=== PATIENT | female | born 1960 | race Caucasian/White ===

== ENCOUNTER 2017-10-26 11:06 | Observation (INO) | payer OTHER ==
[~2017-10-26] VITALS: Ht 167.6 cm; Wt 98.0 kg
[~2017-10-26 11:06] MED LIST: CZR25 PO; LEVO100T7 PO; PRLSR20 PO; VENL150C56 PO
[2017-10-26 11:36] LABS: HEMATOCRIT 40.5 % (37-47); HEMOGLOBIN 13.4 g/dL (12.0-16.0); MEAN CELL VOLUME 87.5 fL (80-100); MEAN CORPUSCULAR HEMOGLOBIN 28.9 pg (25-34); MEAN CORPUSCULAR HGB CONC 33.1 g/dl (32-36); MEAN PLATELET VOLUME 9.5 fL (7.4-10.4); PLATELET COUNT 354 K/uL (130-400); RED CELL DISTRIBUTION WIDTH CV 12.7 % (11.5-14.5); RED CELL DISTRIBUTION WIDTH SD 40.8 fL (36.4-46.3); WHITE BLOOD COUNT 10.52 K/uL (4.8-10.8)
[2017-10-26 11:45] LABS: PTT PATIENT 25.7 SECONDS (21.0-31.0)
[2017-10-26] MEDS ORDERED: NITROGLYCERIN OINT 2% 1GM PACKET EXT ONE (11:45)
--- NOTE | 2017-10-26 11:54 | DIAGNOSTIC IMAGING REPORT ---
SINGLE VIEW CHEST CLINICAL HISTORY: Atypical chest pain. FINDINGS: An AP, portable, upright chest radiograph is compared to study dated 07/08/2015. The examination is mildly degraded by portable technique and patient rotation. The cardiomediastinal silhouette is unremarkable. There is mild atherosclerotic calcification of the thoracic aorta. The lungs and pleural spaces are clear. No pneumothorax is seen. The bony thorax is grossly intact. IMPRESSION: No acute cardiopulmonary abnormality. Electronically signed by: Jay Jay Esquivel M.D. 10/26/2017 11:53 AM Dictated Date/Time: 10/26/2017 11:53 AM
[2017-10-26 11:56] LABS: ALBUMIN 3.8 gm/dl (3.4-5.0); CALCIUM 9.5 mg/dl (8.5-10.1); CREATININE 0.73 mg/dl (0.60-1.20); POTASSIUM 3.5 mmol/L (3.5-5.1)
[2017-10-26] MEDS ORDERED: AMLO-110 PO (12:01)
[2017-10-26 12:04] LABS: TOTAL PROTEIN 8.2 gm/dl (6.4-8.2)
[2017-10-26] MEDS ORDERED: ALUMINUM/MAGNESIUM/SIMETH (MAALOX MAX) 30 ML UDC PO PRN (12:15)
[2017-10-26] MEDS ORDERED: ACETAMINOPHEN 325 MG TAB PO PRN (12:15)
[2017-10-26] MEDS ORDERED: ONDANSETRON INJ 2 MG/ML 2 ML VIAL IV PRN (12:15)
[2017-10-26] MEDS ORDERED: MAGNESIUM HYDROXIDE SUSP 30 ML UDC PO PRN (12:15)
[2017-10-26] MEDS ORDERED: POLYETHYLENE (MIRALAX) 17 GM PACK PO PRN (12:15)
[2017-10-26] MEDS ORDERED: LOSA50TA6 PO (12:22)
[2017-10-26] MEDS ORDERED: PANTOprazole SOD 40 MG TAB PO STA (12:23)
[2017-10-26 12:26] LABS: PHOSPHORUS 0.8 mg/dl (2.5-4.9)
[2017-10-26] MEDS ORDERED: NITROGLYCERIN 2% OINTMENT 30GM TUBE EXT ONE (13:15)
--- NOTE | 2017-10-26 13:40 | EMERGENCY ROOM VISIT NOTE ---
ED Visit Note First contact with patient: 11:37 I saw this patient in conjunction with Bridger Perkins PA-C. I agree with his decision-making and treatment plan
[2017-10-26] MEDS ORDERED: IV FLUIDS COMPLETED PRN (13:45)
[2017-10-26] MEDS ORDERED: SODIUM CHLORIDE 0.9% 1000ML 1,000 ML IV SCH (14:00)
[2017-10-26 14:07] VITALS: BP 161/76; PULSE 58; TEMP 36.8; O2SAT 99; Ht 167.6 cm; Wt 98.0 kg
[2017-10-26] MEDS ORDERED: POTASSIUM PHOS 3 MMOL/1 ML INFUSION IV STA (14:24)
--- NOTE | 2017-10-26 14:26 | EMERGENCY ROOM VISIT NOTE ---
History First contact with patient: 11:37 Chief Complaint: CHEST PAIN Stated Complaint: CHEST PAIN History of Present Illness The patient is a 57 year old female who presents to the Emergency Room with complaints of lower central/epigastric pain that radiates around the left chest to the back. The patient reports that the pain awakened her at 6 AM this morning. Shortly after the pain started, she then started to feel pain radiating into the left jaw the patient initially thought that it may be secondary to anxiety, but when the pain did not subside, the patient called 911. The patient reports that she has had a prior history of chest pain. She was admitted to our facility in 2014, when her workup was normal. The patient has not seen a clothing and textiles teacher since her admission. The patient has had 2 prior cardiac catheterizations that were normal. She believes that her last catheterization was in 2010. She did have some nausea and diaphoresis at the time of pain onset. The patient was administered 4 baby aspirin en route, along with nitroglycerin 3. H or glycerin did reduce her pain after each subsequent dose, and currently rates her discomfort a 3 out of 10. Review of Systems HEENT: Denies dizziness, visual problems, hearing loss, tinnitus. Denies difficulty swallowing or oral lesions. PULMONARY: Denies cough, shortness of breath, sputum production or hemoptysis. CARDIOVASCULAR: Denies any recent palpitations, dyspnea on exertion, orthopnea or peripheral edema. Otherwise see history of present illness for current symptoms. GASTROINTESTINAL: Denies recent diarrhea, constipation or abdominal pain. GENITOURINARY: Denies dysuria, frequency, urgency or nocturia. NEUROLOGIC: Denies history of epilepsy, CVA, TIA or chronic headaches. MUSCULOSKELETAL: Denies history of joint tenderness/swelling. SKIN: Denies rashes or lesions. PSYCHIATRIC: Denies history of depression or mental illness. ENDOCRINE: Denies history of diabetes or thyroid disorders. Past Medical/Surgical History Medical Problems: (1) Anxiety Surgical Problems: (1) H/O: (2) History of cholecystectomy Medical Problems: (1) Anxiety (2) Depression (3) GERD (gastroesophageal reflux disease) (4) Hyperlipidemia (5) Hypothyroidism (6) Osteoarthritis, knee (7) Vitamin B 12 deficiency Surgical Problems: (1) H/O: (2) History of cholecystectomy Family History Heart disease Hypertension Social History Smoking Status: Former Smoker Alcohol Use: none Drug Use: none Marital Status: Housing Status: unknown Occupation Status: disabled Current/Historical Medications Scheduled Amlodipine (Norvasc), 5 MG PO DAILY Levothyroxine Sodium (Levothyroxine Sodium), 100 MCG PO DAILY Losartan Potassium (Cozaar), 1 TAB PO DAILY Omeprazole (Prilosec), 20 MG PO DAILY Venlafaxine Hcl (Effexor Extended Rel), 150 MG PO DAILY Physical Exam Vital Signs Date Time Temp Pulse Resp B/P (MAP) Pulse Ox O2 Delivery O2 Flow Rate FiO2 10/26/17 13:44 63 20 140/83 99 10/26/17 13:30 63 20 140/83 99 Room Air 10/26/17 13:06 61 27 10/26/17 12:36 60 16 10/26/17 12:28 60 10/26/17 11:36 76 31 100 10/26/17 11:31 139/80 10/26/17 11:26 98 10/26/17 11:25 99 Room Air 10/26/17 11:24 137/85 10/26/17 11:13 36.6 86 18 152/83 96 Room Air Physical Exam CONSTITUTIONAL: Healthy and well nourished. Alert and oriented X 3 with positive affect. Patient appears in mild discomfort. She is also crying. HEENT: Normocephalic, atraumatic. Pupils equal, round and reactive. Ears and nares are clear. No conjunctival injection or scleral icterus. OROPHARYNX: No posterior pharyngeal erythema or tonsillar hypertrophy. NECK: Full active range of motion without discomfort. RESPIRATORY: Clear to auscultation bilaterally with no wheezing, crackles, rhonchi or stridor. CARDIOVASCULAR: Regular rate and rhythm with no murmurs, rubs or gallops. GASTROINTESTINAL: Bowel sounds present in all quadrants. Abdomen is soft and nontender to palpation. No hepatosplenomegaly. MUSCULOSKELETAL: Full range of motion of all joints without discomfort. INTEGUMENTARY: No rash or other significant dermatologic conditions noted. HEMATOLOGIC: No ecchymosis or petechiae. NEUROLOGIC: Cranial nerves II-XII grossly intact. No focal neurologic deficits noted. Medical Decision & Procedures ER Provider Diagnostic Interpretation: My interpretation of an initial ECG shows a normal sinus rhythm of 72 bpm with anterolateral ischemic changes. No ST elevation noted. Comparison with an ECG in June 2015 during her last admission does not show any significant changes. My interpretation of a portable chest x-ray does not show any consolidations, pneumothorax or cardiac prominence. Radiologist report is as follows: SINGLE VIEW CHEST CLINICAL HISTORY: Atypical chest pain. FINDINGS: An AP, portable, upright chest radiograph is compared to study dated 07/08/2015. The examination is mildly degraded by portable technique and patient rotation. The cardiomediastinal silhouette is unremarkable. There is mild atherosclerotic calcification of the thoracic aorta. The lungs and pleural spaces are clear. No pneumothorax is seen. The bony thorax is grossly intact. IMPRESSION: No acute cardiopulmonary abnormality. Laboratory Results 10/26/17 11:15 10/26/17 11:15 Test 10/26/17 11:15 10/26/17 11:26 Red Blood Count 4.63 M/uL (4.2-5.4) Mean Corpuscular Volume 87.5 fL (80-100) Mean Corpuscular Hemoglobin 28.9 pg (25-34) Mean Corpuscular Hemoglobin Concent 33.1 g/dl (32-36) RDW Standard Deviation 40.8 fL (36.4-46.3) RDW Coefficient of Variation 12.7 % (11.5-14.5) Mean Platelet Volume 9.5 fL (7.4-10.4) Prothrombin Time 10.7 SECONDS (9.0-12.0) Prothromb Time International Ratio 1.0 (0.9-1.1) Activated Partial Thromboplast Time 25.7 SECONDS (21.0-31.0) Partial Thromboplastin Ratio 1.0 Anion Gap 8.0 mmol/L (3-11) Est Creatinine Clear Calc Drug Dose 102.8 ml/min Estimated GFR () 107.5 Estimated GFR (Non- 92.7 BUN/Creatinine Ratio 15.7 (10-20) Calcium Level 9.5 mg/dl (8.5-10.1) Phosphorus Level 0.8 mg/dl (2.5-4.9) Magnesium Level 2.2 mg/dl (1.8-2.4) Total Bilirubin 0.8 mg/dl (0.2-1) Aspartate Amino Transf (AST/SGOT) 23 U/L (15-37) Alanine Aminotransferase (ALT/SGPT) 23 U/L (12-78) Alkaline Phosphatase 97 U/L (45-117) Total Creatine Kinase 133 U/L (26-192) Creatine Kinase MB 2.0 ng/ml (0.5-3.6) Creatine Kinase MB Ratio 1.5 (0-3.0) Total Protein 8.2 gm/dl (6.4-8.2) Albumin 3.8 gm/dl (3.4-5.0) Globulin 4.4 gm/dl (2.5-4.0) Albumin/Globulin Ratio 0.9 (0.9-2) Thyroid Stimulating Hormone (TSH) 4.010 uIu/ml (0.300-4.500) Bedside Troponin I < 0.030 ng/ml (0-0.045) The above labs were reviewed. Bedside troponin was normal. Phosphorus is 0.8, magnesium 2.2. The patient has no other electrolyte abnormalities. CBC is normal. Medications Administered Medications (Trade) Dose Ordered Sig/Sylvia Route Start Time Stop Time Status Last Admin Dose Admin Pantoprazole Sodium (Protonix Tab) 40 mg NOW STAT PO 10/26/17 12:23 10/26/17 12:32 DC 10/26/17 13:38 40 MG Nitroglycerin (Nitroglycerin 2% Oint) 1 inch NOW ONCE EXT 10/26/17 13:15 10/26/17 13:16 DC 10/26/17 13:38 1 INCH ED Course Patient history and physical exam were performed. Nurse's notes were reviewed. Vital signs were reviewed and were normal. The patient did appear in mild discomfort on my exam. Examination of an ECG shows anterolateral ischemic changes. This is unchanged from the patient's ECG when she was admitted in 2014. Portable chest x-ray was normal. Labs were reviewed to show a normal bedside troponin. Other than hypophosphatemia, remaining labs are otherwise normal. An order was placed for an inch of nitroglycerin paste; however, there was a notable delay in getting this medication from the pharmacy. The patient was also discussed with and evaluated by Dr. Weaver, ED attending physician, who agrees with further cardiac workup. The [facility] hospitalist group was consulted. Please see their dictation for further treatment and final disposition. Medical Decision Patient presents to the emergency department with complaint of chest pain that was relieved with nitroglycerin. It is noted that the patient has had a prior cardiac catheterization approximately 7 years ago that was normal. Her workup today does not show evidence for acute myocardial infarction. I do feel that the patient warrants serial cardiac isoenzymes and a stress echo. [place] Drug Monitoring Program Search Results: patient reviewed within database, no issues identified Medication Reconcilliation Current Medication List: was personally reviewed by me Blood Pressure Screening Patient's blood pressure: Normal blood pressure Impression Primary Impression: Left sided chest pain Departure Information Referrals Jame Robertson D.O. (PCP) Patient Instructions My [facility]
--- NOTE | 2017-10-26 14:40 | History and Physical ---
History & Physical Date & Time of Service: Oct 26, 2017 at 14:25 Chief Complaint: Chest Pain Primary Care Physician: Jame Robertson D.O. History of Present Illness Source: patient, clinic records, hospital records This is a 57 year old female with a PMH of HTN, hypothyroidism, HLD, GERD, depression/anxiety, KELTON - presents with epigastric/substernal chest pain. Patient states she was in her usual state of health the past week and last evening. She fell asleep and woke up to an excruciated epigastric pain that was around an 8/10, radiated around the chest, but not to the back or the arm/jaw. She called EMS, was given nitro. States that her pain is now down to a 5/10. Has had some shortness of breath associated with this chest pain. Presented to the ED, EKG performed and showed possible anterolateral infarct pattern. Previous EKG reviewed and similar pattern present then. She had a cardiac cath x2 in [place]; EKG changes noted then as well, and cath showed no coronary disease. Last cath in 2008. Past Medical/Surgical History Medical Problems: (1) Anxiety Status: Chronic Surgical Problems: (1) H/O: Status: Resolved (2) History of cholecystectomy Status: Resolved Family History Heart disease Hypertension Social History Smoking Status: Former Smoker Drug Use: none Marital Status: Occupational Status: disabled Allergies Coded Allergies: Azithromycin (Verified Allergy, Unknown, ANAPHYLAXIS, 10/26/17) Home Medications Scheduled Amlodipine (Norvasc), 5 MG PO DAILY Levothyroxine Sodium (Levothyroxine Sodium), 100 MCG PO DAILY Losartan Potassium (Cozaar), 1 TAB PO DAILY Omeprazole (Prilosec), 20 MG PO DAILY Venlafaxine Hcl (Effexor Extended Rel), 150 MG PO DAILY Review of Systems Constitutional: No fever, No chills, No weakness Respiratory: + shortness of breath, No cough, No sputum, No wheezing, No dyspnea on exertion, No dyspnea at rest, No hemoptysis Cardiovascular: + chest pain, No edema, No palpitations Abdomen: No pain, No nausea, No vomiting, No diarrhea, No constipation, No GI bleeding Musculoskeletal: No joint pain, No muscle pain Genitourinary - Female: No dysuria, No urinary frequency, No urinary urgency, No urinary incontinence, No urinary retention, No hematuria Neurologic: No weakness, No numbness/tingling, No vertigo, No balance problems Psychiatric: No depression symptoms, No anxiety, No insomnia Endocrine: No fatigue Hematologic / Lymphatic: No abnormal bleeding/bruising Integumentary: No rash Allergic / Immunologic: No environmental allergies, No seasonal allergies Physical Exam Vital Signs Date Time Temp Pulse Resp B/P (MAP) Pulse Ox O2 Delivery O2 Flow Rate FiO2 10/26/17 14:07 36.8 58 16 161/76 99 Room Air 10/26/17 13:44 63 20 140/83 99 10/26/17 13:30 63 20 140/83 99 Room Air 10/26/17 13:06 61 27 10/26/17 12:36 60 16 10/26/17 12:28 60 10/26/17 11:36 76 31 100 10/26/17 11:31 139/80 10/26/17 11:26 98 10/26/17 11:25 99 Room Air 10/26/17 11:24 137/85 10/26/17 11:13 36.6 86 18 152/83 96 Room Air General Appearance: no apparent distress Head: normocephalic, atraumatic Eyes: normal inspection ENT: hearing grossly normal Neck: supple Respiratory/Chest: chest non-tender, lungs clear, normal breath sounds, no respiratory distress, no accessory muscle use Cardiovascular: regular rate, rhythm, no edema, no gallop, no JVD, no murmur, normal peripheral pulses Abdomen/GI: normal bowel sounds, non tender, soft Back: no muscle spasm Extremities/Musculoskelatal: normal inspection, no calf tenderness, normal capillary refill, no pedal edema, normal range of motion Neurologic/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: 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-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 nml as tested, no motor/sensory deficits, alert, normal mood/affect, oriented x 3 Skin: normal color Lymphatic: no adenopathy Diagnostics Laboratory Results Results Past 24 Hours Test 10/26/17 11:15 10/26/17 11:26 Range/Units White Blood Count 10.52 4.8-10.8 K/uL Red Blood Count 4.63 4.2-5.4 M/uL Hemoglobin 13.4 12.0-16.0 g/dL Hematocrit 40.5 37-47 % Mean Corpuscular Volume 87.5 80-100 fL Mean Corpuscular Hemoglobin 28.9 25-34 pg Mean Corpuscular Hemoglobin Concent 33.1 32-36 g/dl RDW Standard Deviation 40.8 36.4-46.3 fL RDW Coefficient of Variation 12.7 11.5-14.5 % Platelet Count 354 130-400 K/uL Mean Platelet Volume 9.5 7.4-10.4 fL Prothrombin Time 10.7 9.0-12.0 SECONDS Prothromb Time International Ratio 1.0 0.9-1.1 Activated Partial Thromboplast Time 25.7 21.0-31.0 SECONDS Partial Thromboplastin Ratio 1.0 Sodium Level 137 136-145 mmol/L Potassium Level 3.5 3.5-5.1 mmol/L Chloride Level 102 98-107 mmol/L Carbon Dioxide Level 27 21-32 mmol/L Anion Gap 8.0 3-11 mmol/L Blood Urea Nitrogen 12 7-18 mg/dl Creatinine 0.73 0.60-1.20 mg/dl Est Creatinine Clear Calc Drug Dose 102.8 ml/min Estimated GFR () 107.5 Estimated GFR (Non- 92.7 BUN/Creatinine Ratio 15.7 10-20 Random Glucose 101 70-99 mg/dl Calcium Level 9.5 8.5-10.1 mg/dl Phosphorus Level 0.8 2.5-4.9 mg/dl Magnesium Level 2.2 1.8-2.4 mg/dl Total Bilirubin 0.8 0.2-1 mg/dl Aspartate Amino Transf (AST/SGOT) 23 15-37 U/L Alanine Aminotransferase (ALT/SGPT) 23 12-78 U/L Alkaline Phosphatase 97 45-117 U/L Total Creatine Kinase 133 26-192 U/L Creatine Kinase MB 2.0 0.5-3.6 ng/ml Creatine Kinase MB Ratio 1.5 0-3.0 Total Protein 8.2 6.4-8.2 gm/dl Albumin 3.8 3.4-5.0 gm/dl Globulin 4.4 2.5-4.0 gm/dl Albumin/Globulin Ratio 0.9 0.9-2 Thyroid Stimulating Hormone (TSH) 4.010 0.300-4.500 uIu/ml Bedside Troponin I < 0.030 0-0.045 ng/ml Diagnostic Radiology SINGLE VIEW CHEST CLINICAL HISTORY: Atypical chest pain. FINDINGS: An AP, portable, upright chest radiograph is compared to study dated 07/08/2015. The examination is mildly degraded by portable technique and patient rotation. The cardiomediastinal silhouette is unremarkable. There is mild atherosclerotic calcification of the thoracic aorta. The lungs and pleural spaces are clear. No pneumothorax is seen. The bony thorax is grossly intact. IMPRESSION: No acute cardiopulmonary abnormality. EKG Normal sinus rhythm Cannot rule out Inferior infarct , age undetermined ST & T wave abnormality, consider anterolateral ischemia Impression Assessment and Plan This is a 57 year old female with a PMH of HTN, hypothyroidism, HLD, GERD, depression/anxiety, KELTON - presents with epigastric/substernal chest pain. Chest Pain r/o ACS patient with chronic EKG changes previous EKG changes noted, showing anterolateral ST changes EKG from today (10/26) shows similar changes, with possible inferior leads showing some changes initial cardiac enzyme is negative plan is to trend Troponin get a resting echo currently on a nitro paste added aspirin increased dose of reflux-medications to Protonix 40mg daily cardiology consulted for further input GERD patient takes Prilosec 20mg at home daily pain is in the epigastric region; possibly related to worsening GERD would benefit from trial of increased dose Protonix 40mg daily while here HTN blood pressure normally controlled with Cozaar and Amlodipine monitor BP and adjust accordingly Hypothyroidism TSH wnl continue Synthroid 100mcg HLD check fasting lipid in AM continue statin DVT ppx Lovenox FULL CODE Advanced Directives Existing Living Will: No Existing Power of Other Sports Official: No VTE Prophylaxis VTE Risk Assessment Done? Y/N: Yes Risk Level: Moderate
[2017-10-26 15:28] VITALS: BP 131/69; PULSE 68; TEMP 36.6; O2SAT 97
[2017-10-26] MEDS ORDERED: POTASSIUM PHOSPHATE INJ 21 MMOL in SODIUM CHLORIDE 0.9% 500ML 500 ML IV ONE (15:30)
--- NOTE | 2017-10-26 16:46 | ECHOCARDIOGRAM REPORT ---
*NOTICE TO RECEIVING [employer] This information is strictly Confidential and protected under [place] law. [place] law prohibits you from making any further disclosure of this information unless further disclosure is expressly permitted by the written consent of the person to whom it pertains or is authorized by law. A general authorization for the release of medical or other information is not sufficient for this purpose. Hospital accepts no responsibility if the information is made available to any other person, INCLUDING THE PATIENT. Interpretation Summary * Name: TERRELL WARE Study Date: 10/26/2017 12:45 PM BP: 152/83 mmHg * Patient Location: [facility] HR: 65 * : 1960 (M/d/yyyy) Gender: Female Height: 63 in * Age: 57 yrs Ethnicity: CA Weight: 216 lb * Ordering Physician: Judah Bui * Referring Physician: Self, Referred * Performed By: Carmen Diop RCS * * Reason For Study: CHEST PAIN * BSA: 2.0 m2 * -- Conclusions -- * The echocardiogram is technically limited, but adequate with the administration of ultrasound contrast. * The left ventricular wall motion is normal. * The LV Ejection Fraction = 55-60%. * There is mild concentric left ventricular hypertrophy. * Grade I diastolic dysfunction, (abnormal relaxation pattern). * There is no significant valvular heart disease. Procedure Details * A complete two-dimensional transthoracic echocardiogram was performed (2D, M-mode, Doppler and color flow Doppler). * The study was technically difficult. * A contrast injection of Definity was performed to improve assessment of LV function. * Contrast was injected into an intravenous site in the right arm. * One vial of Definity ultrasound contrast was diluted in normal saline to a total volume of 10 ml. A total of '2' ml of solution was administered during imaging. * Lot # [id number] of Definity utilized for procedure. * Expiration date OCT 09. * The attending nurse who injected the contrast agent was NEGAR Guadalupe ED RN. Left Ventricle * The left ventricle is normal in size. * There is mild concentric left ventricular hypertrophy. * Left ventricular systolic function is normal. * Ejection Fraction = 55-60%. * The left ventricular wall motion is normal. Right Ventricle * The right ventricle is normal size. * The right ventricular systolic function is normal as assessed by tricuspid annular plane systolic excursion (TAPSE) (normal >1.5 cm). Atria * The left atrial size is normal. * Right atrial size is normal. * There is no evidence of atrial septal defect, but resolution does not allow assessment for a patent foramen ovale. Mitral Valve * The mitral valve is normal. * There is no mitral valve stenosis. * Significant mitral regurgitation is absent. Tricuspid Valve * The tricuspid valve is normal. * There is no tricuspid stenosis. * Significant tricuspid regurgitation is absent. * Doppler findings do not suggest pulmonary hypertension. Aortic Valve * The aortic valve is trileaflet. * Aortic stenosis is absent. * There is no significant aortic regurgitation. Pulmonic Valve * The pulmonary valve is not well seen, but the Doppler examination is normal without significant regurgitation or stenosis. Great Vessels * The aortic root and proximal ascending aorta are normal sized. Pericardium/Pleural * There is no pericardial effusion. Great Vessels * Normal inferior vena cava diameter and respiratory variation suggests normal central venous pressure. Left Ventricular Diastolic Function * Grade I diastolic dysfunction, (abnormal relaxation pattern). MMode 2D Measurements and Calculations IVSd 1.2 cm IVSs 1.5 cm LVIDd 4.7 cm LVIDs 3.3 cm LVPWd 10 cm LVPWs 1.4 cm IVS/LVPW 1.2 FS 31.0 % EDV(Teich) 104.7 ml ESV(Teich) 43.4 ml EF(Teich) 58.6 % EDV(cubed) 106.9 ml ESV(cubed) 35.2 ml EF(cubed) 67.1 % % IVS thick 22.2 % % LVPW thick 39.0 % LV mass(C)d 194.6 grams LV mass(C)dI 97.4 grams/m\S\2 LV mass(C)s 167.1 grams LV mass(C)sI 83.6 grams/m\S\2 SV(Teich) 61.4 ml SI(Teich) 30.7 ml/m\S\2 SV(cubed) 71.7 ml SI(cubed) 35.9 ml/m\S\2 Ao root diam 3.2 cm Ao root area 8.1 cm\S\2 LA dimension 2.6 cm LA/Ao 0.82 LVOT diam 2.0 cm LVOT area 3.3 cm\S\2 LVAd ap4 27.6 cm\S\2 LVLd ap4 7.2 cm EDV(MOD-sp4) 85.5 ml EDV(sp4-el) 89.7 ml LVAs ap4 16.0 cm\S\2 LVLs ap4 5.6 cm ESV(MOD-sp4) 38.6 ml ESV(sp4-el) 38.6 ml EF(MOD-sp4) 54.9 % EF(sp4-el) 57.0 % LVAd ap2 21.3 cm\S\2 LVLd ap2 6.6 cm EDV(MOD-sp2) 56.7 ml EDV(sp2-el) 58.6 ml LVAs ap2 14.0 cm\S\2 LVLs ap2 5.9 cm ESV(MOD-sp2) 27.3 ml ESV(sp2-el) 28.1 ml EF(MOD-sp2) 51.8 % EF(sp2-el) 52.0 % LVLd %diff -9.95 % EDV(MOD-bp) 72.1 ml LVLs %diff 5.3 % ESV(MOD-bp) 33.6 ml EF(MOD-bp) 53.4 % SV(MOD-sp4) 46.9 ml SI(MOD-sp4) 23.5 ml/m\S\2 SV(MOD-sp2) 29.3 ml SI(MOD-sp2) 14.7 ml/m\S\2 SV(MOD-bp) 38.5 ml SI(MOD-bp) 19.3 ml/m\S\2 SV(sp4-el) 51.1 ml SI(sp4-el) 25.6 ml/m\S\2 SV(sp2-el) 30.5 ml SI(sp2-el) 15.2 ml/m\S\2 Doppler Measurements and Calculations MV E max lester 60.4 cm/sec MV A max lester 83.6 cm/sec MV E/A 0.72 MV P1/2t max lester 66.4 cm/sec MV P1/2t 45.9 msec MVA(P1/2t) 4.8 cm\S\2 MV dec slope 423.5 cm/sec\S\2 MV dec time 0.25 sec Ao V2 max 117.3 cm/sec Ao max PG 5.5 mmHg Ao max PG (full) 1.5 mmHg DIANA(V,A) 2.8 cm\S\2 DIANA(V,D) 2.8 cm\S\2 LV V1 max PG 4.0 mmHg LV V1 max 100.3 cm/sec PA V2 max 82.8 cm/sec PA max PG 2.7 mmHg PI max lester 136.3 cm/sec PI max PG 7.4 mmHg PI dec slope 159.1 cm/sec\S\2 PI P1/2t 250.9 msec TR max lester 240.7 cm/sec
--- NOTE | 2017-10-26 17:44 | Cardiology Progress Note ---
Cardiology Progress Note Date of Service Oct 26, 2017. Cardiology Progress Note Cardiology consultation is in progress. Patient presents with chest discomfort somewhat atypical for angina. I assessed her in room 204-1. She notes significant chest pressure at present, she does have abdominal discomfort and states that she feels like she has gas that she is having difficulty getting rid of. Cardiac enzymes negative 1. Her presenting EKG is abnormal with T-wave inversions in the precordial leads suggestive of ischemia, however these are similar to when I had previously seen her in 2014, and as discussed in my consultation at that time, she had a prior cardiac catheterization 2 performed in [place] for workup of similar EKG changes. An echocardiogram has been performed at the bedside revealing normal resting left ventricular wall motion. Recommend ongoing observation trending her cardiac enzymes. Further recommendations will be forthcoming tomorrow.
[2017-10-26 19:43] VITALS: BP 139/57; PULSE 77; TEMP 36.9; O2SAT 94
[2017-10-26] MEDS ORDERED: ENOXAPARIN 40 MG/0.4 ML SYR SC SCH (21:00)
[2017-10-26 23:15] VITALS: BP 131/67; PULSE 67; TEMP 36.8; O2SAT 99
[2017-10-27] MEDS ORDERED: POTASSIUM CHLORIDE 10 MEQ TABCR PO STA (00:32)
[2017-10-27] MEDS ORDERED: NSS + 20MEQ KCL 1000ML 1,000 ML IV ONE (01:00)
[2017-10-27 03:45] VITALS: BP 151/84; PULSE 74; TEMP 37.1; O2SAT 98
[2017-10-27] MEDS ORDERED: LEVOTHYROXINE 100 MCG TAB PO SCH (06:00)
[2017-10-27 06:45] LABS: HEMATOCRIT 38.7 % (37-47); HEMOGLOBIN 12.7 g/dL (12.0-16.0); MEAN CELL VOLUME 88.8 fL (80-100); MEAN CORPUSCULAR HEMOGLOBIN 29.1 pg (25-34); MEAN CORPUSCULAR HGB CONC 32.8 g/dl (32-36); MEAN PLATELET VOLUME 9.2 fL (7.4-10.4); PLATELET COUNT 302 K/uL (130-400); RED CELL DISTRIBUTION WIDTH CV 12.8 % (11.5-14.5); RED CELL DISTRIBUTION WIDTH SD 41.4 fL (36.4-46.3); WHITE BLOOD COUNT 10.22 K/uL (4.8-10.8)
[2017-10-27 07:38] LABS: BLOOD UREA NITROGEN 9 mg/dl (7-18); CALCIUM 8.7 mg/dl (8.5-10.1); CARBON DIOXIDE 27 mmol/L (21-32); CHOLESTEROL 201 mg/dl (0-200); CREATININE 0.66 mg/dl (0.60-1.20); GLUCOSE 105 mg/dl (70-99); SODIUM 141 mmol/L (136-145)
[2017-10-27 07:45] LABS: LDL CHOLESTEROL CALCULATED 127 mg/dl; PHOSPHORUS 2.9 mg/dl (2.5-4.9)
[2017-10-27 07:56] VITALS: BP 135/89; PULSE 74; TEMP 36.8; O2SAT 100
[2017-10-27 08:01] VITALS: O2SAT 100
[2017-10-27] MEDS ORDERED: ALUMINUM/MAGNESIUM SUSP 30 ML UDC PO PRN (08:15)
[2017-10-27] MEDS ORDERED: ASPIRIN 81 MG ECTAB PO SCH (09:00)
[2017-10-27] MEDS ORDERED: VENLAFAXINE HCL XR 150 MG CAPXR PO SCH (09:00)
[2017-10-27] MEDS ORDERED: LOSARTAN POTASSIUM 50 MG TAB PO SCH (09:00)
[2017-10-27] MEDS ORDERED: AMLODIPINE BESYLATE 5 MG TAB PO SCH (09:00)
[2017-10-27] MEDS ORDERED: PANTOprazole SOD 40 MG TAB PO SCH (09:00)
--- NOTE | 2017-10-27 10:43 | Cardiology Consultation ---
Cardiology Consultation Date of Consultation: Oct 27, 2017 History of Present Illness Sangita Dang is a 57 year old female seen in cardiology consultation per the request of Dr Bui for the evaluation of chest discomfort. The patient's recent history dates back to 3 weeks ago when she describes having had a flulike illness. She describes having a low-grade fever, vomiting , diarrhea and headache that lasted several days. Ever since she has had complaint of abdominal bloating and feels like she has "gas" with frequent belching as well as passing gas from flatulence. She states that yesterday she presented to the emergency room with a separate discomfort that she described as a midline chest discomfort. This has since resolved. Cardiac enzymes have been negative 3. EKG performed on presentation yesterday and again this morning revealed sinus rhythm with T-wave inversions noted in leads V1 to V6 suggestive of anterior lateral ischemia. The patient however has a long-standing history of an abnormal EKG. I had actually seen her for evaluation of chest discomfort and abnormal EKG when she was admitted with a bronchitis-type respiratory illness in 2014. Although the T -wave inversions noted on yesterday's tracing or more prominent than that observed today as well as in 2015, similar diffuse repolarization changes in the precordial leads were noted at that time. The patient described having had a prior history of abnormal EKG and she had described to me to prior cardiac catheterizations. Records were obtained from [place] and her and her [facility] chart from the 2014 admission and included a cardiac catheterization that describes "normal coronary arteries " performed in [place] in 2008 for indication of chest pain and abnormal EKG. Past Medical/Surgical History Problem List: Medical Problems: (1) Anxiety (2) Depression (3) GERD (gastroesophageal reflux disease) (4) Hyperlipidemia (5) Hypothyroidism (6) Osteoarthritis, knee (7) Vitamin B 12 deficiency Surgical Problems: (1) H/O: (2) History of cholecystectomy History Social History: Patient describes that she smokes cigarettes for a year and quit 20 years ago She denies any chronic intake of alcohol beverages Family History: She describes seen now coronary artery disease in both of her grandfathers who of myocardial infarction's in their 80s Review Of Systems 10 point review of systems was reviewed and is negative with the exception of that noted above Allergies Coded Allergies: Azithromycin (Verified Allergy, Unknown, ANAPHYLAXIS, 10/26/17) Medications Reported Home Medications Medications Dose Route/Sig Max Daily Dose Days Date Category Cozaar (Losartan Potassium) 50 Mg Tab 1 Tab PO DAILY 30 10/26/17 Reported Norvasc (Amlodipine Besylate) 5 Mg Tab 5 Mg PO DAILY 10/26/17 Reported Levothyroxine Sodium 100 Mcg Tab 100 Mcg PO DAILY 09/13/16 Reported Effexor Extended Rel (Venlafaxine Hcl) 150 Mg Cap 150 Mg PO DAILY 07/08/15 Reported Prilosec (Omeprazole) 20 Mg Capcr 20 Mg PO DAILY 07/08/15 Reported Physical Exam Vital Signs (Last 8hrs): Last 8 Hrs Date Time Temp Pulse Resp B/P (MAP) Pulse Ox O2 Delivery O2 Flow Rate FiO2 10/27/17 07:56 36.8 74 18 135/89 (104) 100 Room Air 10/27/17 04:00 Room Air 10/27/17 03:45 37.1 74 17 151/84 (106) 98 Room Air General Appearance: Alert and Oriented x3. NAD. Head: Normocephalic Atraumatic. Eyes: PERRLA, EOMI, conjunctiva and sclera clear Neck: Supple. No carotid bruits noted. No JVD. No HJD. Respiratory: Breath sounds clear to auscultation bilaterally. No w/r/r. Cardiovascular: Reg rate and rhythm. S1 and S2 noted. No murmurs, rubs, gallops. PMI non displace. There was chest pain that was reproducible on palpation the lower sternal margin although she is not certain that this was the same discomfort that prompted her to come in to the emergency room yesterday Abdomen: The patient had mild epigastric tenderness on palpation. Extremities: No edema, no clubbing or cyanosis. distal pulses 2/4 bilaterally. Neuro: No focal deficits. Psychiatric: Normal affect. Data Last Resulted 10/27/17 06:22 Last Resulted 10/27/17 06:22 Past 24 Hours Test 10/26/17 11:15 10/26/17 18:18 10/27/17 00:05 10/27/17 06:22 Range/Units Creatine Kinase MB 2.0 0.5-3.6 ng/ml Creatine Kinase MB Ratio 1.5 0-3.0 Prothromb Time International Ratio 1.0 0.9-1.1 Prothrombin Time 10.7 9.0-12.0 SECONDS Total Creatine Kinase 133 26-192 U/L Troponin I < 0.015 < 0.015 < 0.015 0-0.045 ng/ml EKG tracings as outlined above Telemetry review reveals a 22nd juliann of supraventricular tachycardia with rate of 120-[address] at 3:43 AM no associated symptoms were reported. Summary transthoracic echocardiogram performed yesterday 10/26/17 and reviewed in apparently by the undersigned: The left ventricular wall motion was normal with ejection fraction of 55-60%. Mild concentric left ventricular hypertrophy was noted. No significant valvular heart disease is present. Grade 1 diastolic dysfunction was present. Assessment & Plan Impression: 57-year-old female 1. Chest discomfort, atypical in character for angina 2. Abnormal EKG, suggestive of anterior, lateral ischemia with T-wave inversions in the anterior precordial leads, however the patient has a long- standing history of abnormal EKG with prior cardiac catheterization having taken place in 2008 for evaluation of chest pain and abnormal EKG. 3. Separate complaint of abdominal bloating 4. Short juliann of supraventricular tachycardia, occurred during anticipated hours of sleep for 3:43 AM on 10/27/17 in the setting of low potassium and low phosphorus levels which have since been replaced Discussion/recommendations: The patient's most significant subjective complaint is a sensation of abdominal bloating. She had tenderness on palpitation of the epigastric region, and also there was a reproducible chest pain at the lower sternal margin on examination today. She states that a week ago she had been seen in the emergency department at [facility] and underwent evaluation with a CT scan of the abdomen which she reported was normal and she was discharged. I anticipate that the patient will not be able to exercise sufficiently to allow technically adequate exercise stress echocardiogram and therefore we'll proceed with dobutamine stress echocardiogram. Will begin vision went for supraventricular arrhythmias during medication administration as these certainly may occur as she had a short run of SVT last night. SVT appears at this point to be an incidental finding as it does not seem to be the cause of her presenting symptoms. The EKG tracing performed in the emergency room yesterday of course is concerning, however it is not significantly different compared to her chronic abnormal EKG which had previously been worked up with cardiac catheterization. Further recommendations be forthcoming. She will likely need additional workup besides a stress test as I do not believe her sensation of abdominal bloating is at all cardiac symptoms and seems to be a separate complaint from her chest pain.
[2017-10-27] MEDS ORDERED: DOBUTamine HCL 12.5 MG/ML 20 ML VIAL ONE (10:57)
[2017-10-27] MEDS ORDERED: METOPROLOL TARTRATE 1 MG/ML VIAL ONE (10:58)
[2017-10-27] MEDS ORDERED: ATROPINE SULFATE 0.1 MG/ML 5ML SYR ONE (10:58)
[2017-10-27 12:07] VITALS: BP 158/100; PULSE 67; TEMP 36.8; O2SAT 100
[2017-10-27] MEDS ORDERED: PERFLUTREN LIPID MICROSPHERE (DEFINITY) IV ONE (12:22)
--- NOTE | 2017-10-27 12:24 | Cardiology Progress Note ---
Cardiology Progress Note Date of Service Oct 27, 2017. Cardiology Progress Note Non ischemic response to DSE. Pt developed tremors after the test which was likely and adverse reaction to dobutamine infusion. Medication event documented. Recommend further evaluation for non cardiac causes of presentation.
[2017-10-27 12:25] VITALS: O2SAT 100
--- NOTE | 2017-10-27 12:27 | DOBUTAMINE ECHO ---
*NOTICE TO RECEIVING REPUBLICAN AGENCY This information is strictly Confidential and protected under [place] law. [place] law prohibits you from making any further disclosure of this information unless further disclosure is expressly permitted by the written consent of the person to whom it pertains or is authorized by law. A general authorization for the release of medical or other information is not sufficient for this purpose. Hospital accepts no responsibility if the information is made available to any other person, INCLUDING THE PATIENT. Interpretation Summary * Name: TERRELL WARE Study Date: 10/27/2017 10:36 AM BP: 157/94 mmHg * Patient Location: .2E\S\E204\S\1 HR: 65 * : 1960 (M/d/yyyy) Gender: Female Height: 66 in * Age: 57 yrs Ethnicity: CA Weight: 216 lb * Ordering Physician: Orlin Baron * Referring Physician: Self, Referred * Performed By: Carmen Diop RCS * * Reason For Study: CHEST PAIN * BSA: 2.1 m2 * -- Conclusions -- * STRESS STUDY: * Normal pharmacologic stress echocardiogram. * No echocardiographic or EKG evidence of myocardial ischemia having achieved heart rate adequate for diagnostic purposes. * No symptoms suggestive of angina induced. * Patient developed tremors post procedure, likely a side effect of dobutamine infusion. Procedure Details * DOBUTAMINE ECHO, CPT#85340 * A contrast injection of Definity was performed to improve assessment of LV function. * Contrast was injected into an intravenous site in the right arm. * One vial of Definity ultrasound contrast was diluted in normal saline to a total volume of 10 ml. A total of '4' ml of solution was administered during imaging. * Lot # [id number] of Definity utilized for procedure. * Expiration date 1 NOV 09. * The attending nurse who injected the contrast agent was MICHAEL LACKEY CPL, RN. Left Ventricle * The left ventricle is normal in size. There is mild concentric left ventricular hypertrophy. Left ventricular systolic function is normal. The LV Ejection Fraction = 55-60% at rest. * Resting wall motion: Normal. Stress wall motion: Appropriate increase in Left ventricular systolic function and decrease in cavity size. No stress induced segmental wall motion abnormalities. Stress Parameters * The baseline EKG revealed sinus rhythm with nonspecific T wave changes in the precordial leads. * The stress EKG response was negative for ischemia. Baseline repolarization changes did not change significantly with pharmacologic stress. Transient accelerated junctional rhythm noted with dobutamine infusion without other arrhythmias. * The stress portion of this study was personally supervised by the undersigned interpreting physician. * Rest heart rate was '65' BPM. * Rest blood pressure was '157/94' * Maximum heart rate achieved was 137 bpm. * Maximum heart rate was 83 % of maximum age-predicted heart rate. * Maximum blood pressure was '207/112' * Maximum Dobutamine infusion rate was '50' mcg/kg/min. * A total of 0 mg of intravenous Atropine was used to supplement Dobutamine for heart rate response. * Dobutamine infusion was terminated due to end of protocol/maximum medication doses * A total of 5 mg of IV Metoprolol was administered to reverse Dobutamine-induced tachycardia.
--- NOTE | 2017-10-27 13:44 | DIAGNOSTIC IMAGING REPORT ---
KUB CLINICAL HISTORY: Generalized abdominal pain. FINDINGS: 2 AP supine abdominal radiographs are obtained. No prior studies are available for comparison at the time of dictation. There is a nonobstructed abdominal bowel gas pattern. No evidence of intraperitoneal free air is seen on these supine views. A calcified granuloma is questioned in the spleen. There is no radiographic evidence of nephrolithiasis. The lung bases are clear as imaged. A 1.4 cm sclerotic focus projects over the left iliac wing and likely represents a bone island. The skeletal structures are osteopenic. The bony pelvis appears intact. IMPRESSION: 1. Nonobstructed abdominal bowel gas pattern. 2. Suspect a bone island in the left iliac wing. Electronically signed by: Jay Jay Esquivel M.D. 10/27/2017 1:42 PM Dictated Date/Time: 10/27/2017 1:41 PM
--- NOTE | 2017-10-27 14:37 | Progress Note ---
Internal Med Progress Note Date of Service: Oct 27, 2017. Provider Documentation: SUBJECTIVE: Patient examined pre and post dobutamine stress echo. Patient apparently and tremors during dobutamine test however this has resolved when back on medical dobbins. Has been having bloating sensations OBJECTIVE: Exam: General- no acute distress Eyes- EOMI ENT- normal oropharynx Neck- midline trachea, no JVD Lungs- CTABL, no wheezing Heart- regular rate Abdomen- soft, positive bowel sounds. no acute tenderness on palpation but patient reports than when pressing midline upper epigastrium she has abdominal discomfort Extremities-no edema Neuro-awake and alert ASSESSMENT & PLAN: Imaging Chest X ray 10/26/17: No acute cardiopulmonary abnormality Resting Transthoracic echocardiogram 10/26/17: * The echocardiogram is technically limited, but adequate with the administration of ultrasound contrast. * The left ventricular wall motion is normal. * The LV Ejection Fraction = 55-60%. * There is mild concentric left ventricular hypertrophy. * Grade I diastolic dysfunction, (abnormal relaxation pattern). * There is no significant valvular heart disease. Dobutamine Stress Echo 10/27/17 Normal pharmacologic stress echocardiogram. * No echocardiographic or EKG evidence of myocardial ischemia having achieved heart rate adequate for diagnostic purposes. * No symptoms suggestive of angina induced. * Patient developed tremors post procedure, likely a side effect of dobutamine infusion KUB 10/27/17: There is a nonobstructed abdominal bowel gas pattern. No evidence of intraperitoneal free air is seen on these supine views. A calcified granuloma is questioned in the spleen. There is no radiographic evidence of nephrolithiasis. The lung bases are clear as imaged. A 1.4 cm sclerotic focus projects over the left iliac wing and likely represents a bone island. The skeletal structures are osteopenic. The bony pelvis appears intact. Hospital Course: 57 year old female presented with epigastric/substernal chest pain. Patient was evaluated by cardiology. Patient had negative troponins and Non ischemic response to Dobutamine Stress Echocardiogram. The discomfort is non cardiac pain. Patient had KUB that did not find evidence for obstruction. Patient has been able to eat and drink and denies problems with bowel movements. Patient's epigastric/chest discomfort likely from GI tract. Patient has had history of gastroesophageal reflux (GERD) on omeprazole at home before hospital admission. Will discharge with prescription for increased daily dose of omeprazole in case symptoms are worsening GERD or peptic ulcer disease. Patient to follow up with primary care doctor and perhaps patient may need to be evaluated for upper endoscopy if symptoms persists or worsen. Patient to return to emergency room if acute fever, acute abdominal pain, vomiting, or fever. Patient also will need follow up imaging for incidental findings of possible calcified granuloma of spleen and 1.4 cm sclerotic focus projects over the left iliac wing. This can be followed by primary care doctor Discharge appointment 10/30/2017 10:00 AM Kathya Carrasquillo PA-C Internal Medicine [facility] Discharge Instructions Please return to the emergency room if acute fever, acute abdominal pain, vomiting, or fever Vital Signs: Date Time Temp Pulse Resp B/P (MAP) Pulse Ox O2 Delivery O2 Flow Rate FiO2 10/27/17 12:25 100 Room Air 10/27/17 12:07 36.8 67 18 158/100 (119) 100 Room Air 10/27/17 08:01 100 Room Air 10/27/17 07:56 36.8 74 18 135/89 (104) 100 Room Air 10/27/17 04:00 Room Air 10/27/17 03:45 37.1 74 17 151/84 (106) 98 Room Air 10/27/17 00:01 Room Air 10/26/17 23:15 36.8 67 16 131/67 (88) 99 Room Air 10/26/17 20:00 Room Air 10/26/17 19:43 36.9 77 22 139/57 (84) 94 Room Air 10/26/17 16:00 Room Air 10/26/17 15:28 36.6 68 20 131/69 (89) 97 Room Air Lab Results: Results Past 24 Hours Test 10/26/17 18:18 10/27/17 00:05 10/27/17 06:22 10/27/17 12:21 Range/Units Troponin I < 0.015 < 0.015 < 0.015 < 0.015 0-0.045 ng/ml White Blood Count 10.22 4.8-10.8 K/uL Red Blood Count 4.36 4.2-5.4 M/uL Hemoglobin 12.7 12.0-16.0 g/dL Hematocrit 38.7 37-47 % Mean Corpuscular Volume 88.8 80-100 fL Mean Corpuscular Hemoglobin 29.1 25-34 pg Mean Corpuscular Hemoglobin Concent 32.8 32-36 g/dl RDW Standard Deviation 41.4 36.4-46.3 fL RDW Coefficient of Variation 12.8 11.5-14.5 % Platelet Count 302 130-400 K/uL Mean Platelet Volume 9.2 7.4-10.4 fL Sodium Level 141 136-145 mmol/L Potassium Level 4.0 3.5-5.1 mmol/L Chloride Level 108 98-107 mmol/L Carbon Dioxide Level 27 21-32 mmol/L Anion Gap 6.0 3-11 mmol/L Blood Urea Nitrogen 9 7-18 mg/dl Creatinine 0.66 0.60-1.20 mg/dl Est Creatinine Clear Calc Drug Dose 113.7 ml/min Estimated GFR () 115.3 Estimated GFR (Non- 99.4 BUN/Creatinine Ratio 13.3 10-20 Random Glucose 105 70-99 mg/dl Calcium Level 8.7 8.5-10.1 mg/dl Phosphorus Level 2.9 2.5-4.9 mg/dl Magnesium Level 2.2 1.8-2.4 mg/dl Triglycerides Level 108 0-150 mg/dl Cholesterol Level 201 0-200 mg/dl HDL Cholesterol 52 mg/dl LDL Cholesterol, Calculated 127 mg/dl VLDL Cholesterol, Calculated 22 mg/dl Cholesterol/HDL Ratio 3.9
[2017-10-27] MEDS ORDERED: MLXESC PO (14:45)
[2017-10-27] MEDS ORDERED: PRLSR20 PO (14:45)
--- NOTE | 2017-10-27 14:53 | Discharge Instructions ---
Discharge Instructions Date of Service Oct 27, 2017. Admission Reason for Admission: Chest Pain Discharge Discharge Diagnosis / Problem: GERD, non cardiac chest pain Discharge Goals Goal(s): Decrease discomfort, Improve function Activity Recommendations Activity Limitations: per Instructions/Follow-up section Shower/Bathe: no limitations . Instructions / Follow-Up Instructions / Follow-Up Imaging Chest X ray 10/26/17: No acute cardiopulmonary abnormality Resting Transthoracic echocardiogram 10/26/17: * The echocardiogram is technically limited, but adequate with the administration of ultrasound contrast. * The left ventricular wall motion is normal. * The LV Ejection Fraction = 55-60%. * There is mild concentric left ventricular hypertrophy. * Grade I diastolic dysfunction, (abnormal relaxation pattern). * There is no significant valvular heart disease. Dobutamine Stress Echo 10/27/17 Normal pharmacologic stress echocardiogram. * No echocardiographic or EKG evidence of myocardial ischemia having achieved heart rate adequate for diagnostic purposes. * No symptoms suggestive of angina induced. * Patient developed tremors post procedure, likely a side effect of dobutamine infusion KUB 10/27/17: There is a nonobstructed abdominal bowel gas pattern. No evidence of intraperitoneal free air is seen on these supine views. A calcified granuloma is questioned in the spleen. There is no radiographic evidence of nephrolithiasis. The lung bases are clear as imaged. A 1.4 cm sclerotic focus projects over the left iliac wing and likely represents a bone island. The skeletal structures are osteopenic. The bony pelvis appears intact. Hospital Course: 57 year old female presented with epigastric/substernal chest pain. Patient was evaluated by cardiology. Patient had negative troponins and Non ischemic response to Dobutamine Stress Echocardiogram. The discomfort is non cardiac pain. Patient had KUB that did not find evidence for obstruction. Patient has been able to eat and drink and denies problems with bowel movements. Patient's epigastric/chest discomfort likely from GI tract. Patient has had history of gastroesophageal reflux (GERD) on omeprazole at home before hospital admission. Will discharge with prescription for increased daily dose of omeprazole in case symptoms are worsening GERD or peptic ulcer disease. Patient to follow up with primary care doctor and perhaps patient may need to be evaluated for upper endoscopy if symptoms persists or worsen. Patient to return to emergency room if acute fever, acute abdominal pain, vomiting, or fever. Patient also will need follow up imaging for incidental findings of possible calcified granuloma of spleen and 1.4 cm sclerotic focus projects over the left iliac wing. This can be followed by primary care doctor Discharge appointment 10/30/2017 10:00 AM Kathya Carrasquillo PA-C Internal Medicine [facility] Discharge Instructions Please return to the emergency room if acute fever, acute abdominal pain, vomiting, or fever Current Hospital Diet Patient's current hospital diet: AHA Diet (Heart Healthy) Discharge Diet Recommended Diet: AHA Diet (Heart Healthy) Pending Studies Studies pending at discharge: no Laboratory Results 10/27/17 06:22 10/27/17 06:22 Test 10/26/17 11:15 10/26/17 11:26 10/27/17 06:22 10/27/17 12:21 Prothrombin Time 10.7 SECONDS (9.0-12.0) Prothromb Time International Ratio 1.0 (0.9-1.1) Activated Partial Thromboplast Time 25.7 SECONDS (21.0-31.0) Partial Thromboplastin Ratio 1.0 Total Bilirubin 0.8 mg/dl (0.2-1) Aspartate Amino Transf (AST/SGOT) 23 U/L (15-37) Alanine Aminotransferase (ALT/SGPT) 23 U/L (12-78) Alkaline Phosphatase 97 U/L (45-117) Total Creatine Kinase 133 U/L (26-192) Creatine Kinase MB 2.0 ng/ml (0.5-3.6) Creatine Kinase MB Ratio 1.5 (0-3.0) Total Protein 8.2 gm/dl (6.4-8.2) Albumin 3.8 gm/dl (3.4-5.0) Globulin 4.4 gm/dl (2.5-4.0) Albumin/Globulin Ratio 0.9 (0.9-2) Thyroid Stimulating Hormone (TSH) 4.010 uIu/ml (0.300-4.500) Bedside Troponin I < 0.030 ng/ml (0-0.045) Red Blood Count 4.36 M/uL (4.2-5.4) Mean Corpuscular Volume 88.8 fL (80-100) Mean Corpuscular Hemoglobin 29.1 pg (25-34) Mean Corpuscular Hemoglobin Concent 32.8 g/dl (32-36) RDW Standard Deviation 41.4 fL (36.4-46.3) RDW Coefficient of Variation 12.8 % (11.5-14.5) Mean Platelet Volume 9.2 fL (7.4-10.4) Anion Gap 6.0 mmol/L (3-11) Est Creatinine Clear Calc Drug Dose 113.7 ml/min Estimated GFR () 115.3 Estimated GFR (Non- 99.4 BUN/Creatinine Ratio 13.3 (10-20) Calcium Level 8.7 mg/dl (8.5-10.1) Phosphorus Level 2.9 mg/dl (2.5-4.9) Magnesium Level 2.2 mg/dl (1.8-2.4) Triglycerides Level 108 mg/dl (0-150) Cholesterol Level 201 mg/dl (0-200) HDL Cholesterol 52 mg/dl LDL Cholesterol, Calculated 127 mg/dl VLDL Cholesterol, Calculated 22 mg/dl Cholesterol/HDL Ratio 3.9 Troponin I < 0.015 ng/ml (0-0.045) Lipid Panel Test 10/27/17 06:22 Range/Units Triglycerides Level 108 0-150 mg/dl Cholesterol Level 201 H 0-200 mg/dl HDL Cholesterol 52 mg/dl Cholesterol/HDL Ratio 3.9 LDL Cholesterol, Calculated 127 mg/dl Medical Emergencies . Who to Call and When: Medical Emergencies: If at any time you feel your situation is an emergency, please call 911 immediately. . Non-Emergent Contact Non-Emergency issues call your: Primary Care Provider Call Non-Emergent contact if: you have a fever, your pain is not controlled . . "Provider Documentation" section prepared by Carlos Khoury. . VTE Core Measure Inpt VTE Proph given/why not?: Enoxaparin (Lovenox)SQ
--- NOTE | 2017-10-27 14:56 | Discharge Summary ---
Discharge Summary Date of Service Oct 27, 2017. Discharge Summary Admission Date: Oct 26, 2017 at 12:19 Discharge Date: Oct 27, 2017 Discharge Disposition: Home Principal Diagnosis: GERD, non cardiac chest pain Medication Reconciliation New Medications: Aluminum/Magnesium/Simeth (Mag-Al Plus Xs 400-400-40 mg/5Ml) 30 Ml Susp 15 ML PO Q4H PRN for Dyspepsia for 3 Days, #180 ML Changed Medications: Omeprazole (Prilosec) 20 Mg Capcr 40 MG PO DAILY for 30 Days, #60 CAP (Changed from: 20 MG) Continued Medications: Amlodipine (Norvasc) 5 Mg Tab 5 MG PO DAILY, TAB Levothyroxine Sodium (Levothyroxine Sodium) 100 Mcg Tab 100 MCG PO DAILY, #30 Losartan Potassium (Cozaar) 50 Mg Tab 1 TAB PO DAILY for 30 Days, #30 TAB 5 Refills Venlafaxine Hcl (Effexor Extended Rel) 150 Mg Cap 150 MG PO DAILY, CAP Admission Information HPI (per Admitting provider): This is a 57 year old female with a PMH of HTN, hypothyroidism, HLD, GERD, depression/anxiety, [place] - presents with epigastric/substernal chest pain. Patient states she was in her usual state of health the past week and last evening. She fell asleep and woke up to an excruciated epigastric pain that was around an 8/10, radiated around the chest, but not to the back or the arm/jaw. She called EMS, was given nitro. States that her pain is now down to a 5/10. Has had some shortness of breath associated with this chest pain. Presented to the ED, EKG performed and showed possible anterolateral infarct pattern. Previous EKG reviewed and similar pattern present then. She had a cardiac cath x2 in [place]; EKG changes noted then as well, and cath showed no coronary disease. Last cath in 2008. Physical Exam (per Admitting): General Appearance: no apparent distress Head: normocephalic, atraumatic Eyes: normal inspection ENT: hearing grossly normal Neck: supple Respiratory/Chest: chest non-tender, lungs clear, normal breath sounds, no respiratory distress, no accessory muscle use Cardiovascular: regular rate, rhythm, no edema, no gallop, no JVD, no murmur , normal peripheral pulses Abdomen/GI: normal bowel sounds, non tender, soft Back: no muscle spasm Extremities/Musculoskelatal: normal inspection, no calf tenderness, normal capillary refill, no pedal edema, normal range of motion Neurologic/Psych: manager subway II-XII nml as tested, no motor/sensory deficits, alert , normal mood/affect, oriented x 3 Skin: normal color Lymphatic: no adenopathy Hospital Course Imaging Chest X ray 10/26/17: No acute cardiopulmonary abnormality Resting Transthoracic echocardiogram 10/26/17: * The echocardiogram is technically limited, but adequate with the administration of ultrasound contrast. * The left ventricular wall motion is normal. * The LV Ejection Fraction = 55-60%. * There is mild concentric left ventricular hypertrophy. * Grade I diastolic dysfunction, (abnormal relaxation pattern). * There is no significant valvular heart disease. Dobutamine Stress Echo 10/27/17 Normal pharmacologic stress echocardiogram. * No echocardiographic or EKG evidence of myocardial ischemia having achieved heart rate adequate for diagnostic purposes. * No symptoms suggestive of angina induced. * Patient developed tremors post procedure, likely a side effect of dobutamine infusion KUB 10/27/17: There is a nonobstructed abdominal bowel gas pattern. No evidence of intraperitoneal free air is seen on these supine views. A calcified granuloma is questioned in the spleen. There is no radiographic evidence of nephrolithiasis. The lung bases are clear as imaged. A 1.4 cm sclerotic focus projects over the left iliac wing and likely represents a bone island. The skeletal structures are osteopenic. The bony pelvis appears intact. Hospital Course: 57 year old female presented with epigastric/substernal chest pain. Patient was evaluated by cardiology. Patient had negative troponins and Non ischemic response to Dobutamine Stress Echocardiogram. The discomfort is non cardiac pain. Patient had KUB that did not find evidence for obstruction. Patient has been able to eat and drink and denies problems with bowel movements. Patient's epigastric/chest discomfort likely from GI tract. Patient has had history of gastroesophageal reflux (GERD) on omeprazole at home before hospital admission. Will discharge with prescription for increased daily dose of omeprazole in case symptoms are worsening GERD or peptic ulcer disease. Patient to follow up with primary care doctor and perhaps patient may need to be evaluated for upper endoscopy if symptoms persists or worsen. Patient to return to emergency room if acute fever, acute abdominal pain, vomiting, or fever. Patient also will need follow up imaging for incidental findings of possible calcified granuloma of spleen and 1.4 cm sclerotic focus projects over the left iliac wing. This can be followed by primary care doctor Discharge appointment 10/30/2017 10:00 AM Kathya Carrasquillo PA-C Internal Medicine [facility] Discharge Instructions Please return to the emergency room if acute fever, acute abdominal pain, vomiting, or fever Total time spent on discharge = 60 minutes This includes examination of the patient, discharge planning, medication reconciliation, and communication with other providers. Discharge Instructions see above
[2017-10-27 14:58] VITALS: BP 158/100; PULSE 67; TEMP 36.8; O2SAT 100
== END 2017-10-27 15:18 | disposition home or self-care (01) ==
LOC: EDBD 11:06 → C.EDA 11:07 → C.2E 12:19 → ENRESERV 13:19
PROVIDERS: ADMIT Family Medicine; ATTEND Hospitalist
DX: K21.9 Gastro-esophageal reflux disease without esophagitis (principal); R07.89 Other chest pain; R94.31 Abnormal electrocardiogram [ECG] [EKG]; I10 Essential (primary) hypertension; E03.9 Hypothyroidism, unspecified; E78.5 Hyperlipidemia, unspecified; E53.8 Deficiency of other specified B group vitamins; F32.9 Major depressive disorder, single episode, unspecified; M17.10 Unilateral primary osteoarthritis, unspecified knee; G47.33 Obstructive sleep apnea (adult) (pediatric); Z87.891 Personal history of nicotine dependence; Z90.49 Acquired absence of other specified parts of digestive tract; Z88.1 Allergy status to other antibiotic agents; Z82.49 Family history of ischemic heart disease and other diseases of the circulatory system